=== PATIENT | male | born 1960 | race Caucasian/White ===

== ENCOUNTER 2017-01-19 10:17 | Emergency (ER) | payer OTHER ==
[~2017-01-19] VITALS: Ht 185.4 cm; Wt 99.7 kg
[~2017-01-19 10:17] MED LIST: MULT-464 PO; PARO10TA3 PO
[2017-01-19 10:32] VITALS: BP 159/104
[2017-01-19] MEDS ORDERED: MECLIZINE CHEWABLE 25 MG TAB ONE (11:09)
[2017-01-19] MEDS ORDERED: MECLIZINE CHEWABLE 25 MG TAB PO ONE (11:30)
[2017-01-19 11:56] LABS: HEMOGLOBIN 15.1 g/dL (13.7-18.0)
[2017-01-19 12:16] LABS: BLOOD UREA NITROGEN 13 mg/dL (7-18)
== END 2017-01-19 13:18 | disposition home or self-care (01) ==
LOC: ED 11:54
DX: H81.10 Benign paroxysmal vertigo, unspecified ear (principal); R42 Dizziness and giddiness; I10 Essential (primary) hypertension; Z95.2 Presence of prosthetic heart valve
CPT/HCPCS: 36415; 80048; 82040; 85025; 93005